=== PATIENT | female | born 1985 | race Caucasian/White ===

== ENCOUNTER 2016-12-14 08:39 | Emergency (ER) | payer OTHER ==
[~2016-12-14] VITALS: Ht 152.4 cm; Wt 88.0 kg
[~2016-12-14 08:39] MED LIST: BUSP10TA PO; DEPO150I IM; DICY20TA10 PO; NORE1TAB57 PO; SERT-132 PO
[2016-12-14 08:53] VITALS: BP 118/86; PULSE 84; RESP 16; TEMP 98.4; O2SAT 98
[2016-12-14] MEDS ORDERED: OMEP40CA2 PO (09:04)
[2016-12-14] MEDS ORDERED: SODIUM CHLOR 0.9% 1000 ML INJ 1,000 ML IV SCH (09:05)
--- NOTE | 2016-12-14 09:08 | PD ---
HPI Chief Complaint: Abdominal Pain Time Seen by Provider: 08:56 Travel History International Travel<30 days: No Contact w/Intl Traveler<30days: No Traveled to known affect area: No History of Present Illness HPI This is a 31-year-old female who had onset of abdominal discomfort that started last night, constant, moderate severity associated with increased severity this morning with 2 episodes of vomiting. She denies any fevers or chills. She does have some radiation of the pain to the right flank. She says she's been trying to have a bowel movement but she feels like she can't. She denies any diarrhea. She denies any urinary frequency or urgency. She denies any vaginal discharge and she's had one sexual partner in the past 7 years. PFSH Past Medical History Hx Anticoagulant Therapy: No Arthritis: No Asthma: No Autoimmune Disease: No Blood Disorders: No Anxiety: Yes Depression: Yes Heart Rhythm Problems: No Cancer: No Cardiovascular Problems: No High Cholesterol: No Chemotherapy: No Chest Pain: No Congestive Heart Failure: No COPD: No Cerebrovascular Accident: No Diabetes: No Diminished Hearing: No Fibromyalgia: Yes Gastrointestinal Disorders: No GERD: Yes Glaucoma: No Genitourinary: No Headaches: No Hepatitis: No Hiatal Hernia: No Hypertension: No Kidney Stones: No Musculoskeletal: No Neurologic: No Psychiatric: No Reproductive: No Respiratory: No Migraines: No Myocardial Infarction: No Radiation Therapy: No Renal Failure: No Seizures: No Sickle Cell Disease: No Sleep Apnea: No Thyroid Disease: No Ulcer: Yes Tetanus Vaccination: > 5 Years Influenza Vaccination: No ?: Not : 0 Past Surgical History Abdominal Surgery: No AICD: No Appendectomy: No Arteriovenous Shunt: No Cardiac Surgery: No Cholecystectomy: No Ear Surgery: No Endocrine Surgery: No Eye Surgery: No Genitourinary Surgery: No Gynecologic Surgery: No Insulin Pump: No Joint Replacement: No Neurologic Surgery: No Oral Surgery: Yes (TONSILECTOMY) Pacemaker: No Thoracic Surgery: No Tonsillectomy: Yes (12/28/07) Other Surgery: Yes (TONSILECTOMY) Social History Alcohol Use: No Tobacco Use: No Substance Use: No Allergies-Medications (Allergen,Severity, Reaction): Coded Allergies: Procardia (Verified Allergy, Unknown, 12/14/16) Reported Meds & Prescriptions Reported Meds & Active Scripts Active Sertraline (Sertraline HCl) 50 Mg Tab 50 Mg PO DAILY Buspirone (Buspirone HCl) 10 Mg Tab 10 Mg PO BID Reported Depo-Provera Inj (Medroxyprogesterone Inj) 150 Mg/Ml Inj 150 Mg IM Q90D Omeprazole 40 Mg Cap 40 Mg PO DAILY Review of Systems Except as stated in HPI: all other systems reviewed are Neg Physical Exam Narrative GENERAL:Well appearing, no acute distress SKIN: Focused skin assessment warm and dry. HEAD: Atraumatic. Normocephalic. EYES: Pupils equal and round. No injection or drainage. ENT: Moist mucous membranes NECK: Trachea midline. CARDIOVASCULAR: Regular rate and rhythm. No murmur appreciated. RESPIRATORY: Clear to auscultation. Breath sounds equal bilaterally. GASTROINTESTINAL: Abdomen soft, tender to palpation with guarding in the right lower quadrant MUSCULOSKELETAL: No obvious deformities. NEUROLOGICAL: Awake and alert. No obvious cranial nerve deficits. Moving all extremities. PSYCHIATRIC: Appropriate mood and affect; insight and judgment normal. Data Data Last Documented VS Vital Signs Date Time Temp Pulse Resp B/P Pulse Ox O2 Delivery O2 Flow Rate FiO2 12/14/16 09:25 98 Room Air 12/14/16 08:53 98.4 84 16 118/86 Orders Urinalysis - C+S If Indicated (12/14/16 08:53) Ed Urine Pregnancytest Poc (12/14/16 08:53) Complete Blood Count With Diff (12/14/16 09:05) Comprehensive Metabolic Panel (12/14/16 09:05) Lipase (12/14/16 09:05) Ct Abd/Pel W Iv Contrast(Rout) (12/14/16 09:05) Iv Access Insert/Monitor (12/14/16 09:05) Ecg Monitoring (12/14/16 09:05) Oximetry (12/14/16 09:05) Morphine Inj (Morphine Inj) (12/14/16 09:15) Ondansetron Inj (Zofran Inj) (12/14/16 09:15) Sodium Chlor 0.9% 1000 Ml Inj (Ns 1000 M (12/14/16 09:05) Sodium Chloride 0.9% Flush (Ns Flush) (12/14/16 09:15) Iohexol 350 Inj (Omnipaque 350 Inj) (12/14/16 09:42) Labs Laboratory Tests Test 12/14/16 12/14/16 09:00 09:15 Urine Collection Type VOIDED Urine Color YELLOW Urine Turbidity CLEAR Urine pH 5.5 Urine Specific [place] 1.009 Urine Protein NEG mg/dL Urine Glucose (UA) NEG mg/dL Urine Ketones NEG mg/dL Urine Occult Blood NEG Urine Nitrite NEG Urine Bilirubin NEG Urine Leukocyte Esterase NEG Urine WBC 0-2 /hpf Urine Squamous Epithelial 0-5 /hpf Cells Urine Bacteria RARE /hpf Microscopic Urinalysis Comment CULT NOT INDICATED Urine Collection Time 0900 White Blood Count 10.1 TH/MM3 Red Blood Count 4.87 MIL/MM3 Hemoglobin 14.1 GM/DL Hematocrit 42.4 % Mean Corpuscular Volume 87.2 FL Mean Corpuscular Hemoglobin 29.0 PG Mean Corpuscular Hemoglobin 33.2 % Concent Red Cell Distribution Width 13.0 % Platelet Count 270 TH/MM3 Mean Platelet Volume 8.0 FL Neutrophils (%) (Auto) 62.1 % Lymphocytes (%) (Auto) 24.6 % Monocytes (%) (Auto) 7.3 % Eosinophils (%) (Auto) 5.3 % Basophils (%) (Auto) 0.7 % Neutrophils # (Auto) 6.3 TH/MM3 Lymphocytes # (Auto) 2.5 TH/MM3 Monocytes # (Auto) 0.7 TH/MM3 Eosinophils # (Auto) 0.5 TH/MM3 Basophils # (Auto) 0.1 TH/MM3 CBC Comment DIFF FINAL Differential Comment Sodium Level 139 MEQ/L Potassium Level 3.8 MEQ/L Chloride Level 105 MEQ/L Carbon Dioxide Level 23.9 MEQ/L Anion Gap 10 MEQ/L Blood Urea Nitrogen 13 MG/DL Creatinine 0.75 MG/DL Estimat Glomerular Filtration 91 ML/MIN Rate Random Glucose 99 MG/DL Calcium Level 8.8 MG/DL Total Bilirubin 0.6 MG/DL Aspartate Amino Transf 22 U/L (AST/SGOT) Alanine Aminotransferase 36 U/L (ALT/SGPT) Alkaline Phosphatase 78 U/L Total Protein 7.6 GM/DL Albumin 3.8 GM/DL Lipase 134 U/L [facility] Medical Decision Making Medical Screen Exam Complete: Yes Emergency Medical Condition: Yes Interpretation(s) Afebrile, no tachycardia, normotensive No leukocytosis Electrolytes are reassuring Lipase is normal Urinalysis: Negative for infection Differential Diagnosis Appendicitis, urinary tract infection, kidney stone, cholelithiasis, cholecystitis Narrative Course This is a 31-year-old female who presents to the emergency department with abdominal pain and vomiting. She was placed on a monitor and an IV was established. Labs are obtained which were reassuring. Urinalysis is negative for infection. I discussed with her doing a pelvic exam by given she's been monogamous with her for 7 years and has no vaginal complaints, she agreed to defer this is pelvic inflammatory disease is unlikely. CT abdomen and pelvis was obtained to evaluate for appendicitis which was negative. The patient does have a history of endometriosis and irritable bowel syndrome. She was unusually tearful when I examined her abdomen, and I suspect that there are some undertones of anxiety and depression contributing to her presentation here in the emergency Department. I don't think she has a surgical emergency and I think she can safely be discharged home to follow up with her primary care physician. Diagnosis Primary Impression: Abdominal pain Qualified Code: R10.30 - Lower abdominal pain Patient Instructions: General Instructions Additional Instructions: If you develop severe or worsening abdominal pain, fever>100.4, persistent vomiting or inability to eat or drink return to the emergency department immediately. Follow up with your primary care physician in 1-2 days for a check-up. Med/Other Pt SpecificInfo: Prescription(s) given Scripts Ondansetron Odt (Zofran Odt)4 Mg Tab4 Mg SL Q6HR PRN (Nausea/Vomiting) #15 TAB Prov:Brandy Elliott MD 12/14/16 Naproxen 500 Mg [id number] Mg PO BID PRN (PAIN SCALE 4 TO 10) #20 TAB Prov:Brandy Elliott MD 12/14/16 Disposition: 01 DISCHARGE HOME Condition: Stable Brandy Elliott MD December 14, 2016 09:08
[2016-12-14] MEDS ORDERED: DEPO150I IM (09:09)
[2016-12-14] MEDS ORDERED: MORPHINE SULFATE 4 MG/ML INJ IV PUSH ONE (09:15)
[2016-12-14] MEDS ORDERED: ONDANSETRON HCL 4 MG/2 ML VIAL IVP ONE (09:15)
[2016-12-14] MEDS ORDERED: SODIUM CHLORIDE 0.9% FLUSH 10 ML FLUSH IV FLUSH PRN (09:15)
[2016-12-14 09:17] LABS: BLOOD, URINE NEG (NEG); GLUCOSE,URINE NEG (NEG); KETONE, URINE NEG (NEG); NITRITE,URINE NEG (NEG); PH, URINE 5.5 (5.0-8.5)
[2016-12-14 09:25] VITALS: O2SAT 98
[2016-12-14 09:28] LABS: AUTOMATED NEUTROPHIL # 6.3 TH/MM3 (1.8-7.7); BASOPHIL # 0.1 TH/MM3 (0-0.2); BASOPHIL % 0.7 % (0.0-2.0); EOSINOPHIL # 0.5 TH/MM3 (0-0.4); EOSINOPHIL % 5.3 % (0.0-4.0); HEMATOCRIT 42.4 % (35.0-46.0); LYMPH % 24.6 % (9.0-44.0); LYMPHOCYTE # 2.5 TH/MM3 (1.0-4.8); MEAN CELL VOLUME 87.2 FL (80.0-100.0); MEAN CORPUSCULAR HGB CONC 33.2 % (32.0-36.0); MONO % 7.3 % (0.0-8.0); NEUT % 62.1 % (16.0-70.0); PLATELET COUNT 270 TH/MM3 (150-450); RED BLOOD COUNT 4.87 MIL/MM3 (4.00-5.30); WHITE BLOOD COUNT 10.1 TH/MM3 (4.0-11.0)
[2016-12-14 09:41] LABS: METHOD OF COLLECTION VOIDED; SQUAMOUS EPITHELIAL CELL URINE 0-5 /hpf (0-5); URINE COLOR YELLOW (YELLW/STRAW); WBC, URINE 0-2 /hpf (0-5)
[2016-12-14 09:42] LABS: BACTERIA, URINE RARE /hpf
[2016-12-14] MEDS ORDERED: IOHEXOL 350 MG/ML 10 ML VIAL (for RAD DIAG) IV ONE (09:42)
[2016-12-14 09:43] LABS: COMMENT (UR) CULT NOT INDICATED; CULTURE IF INDICATED CULT NOT INDICATED
[2016-12-14 09:44] LABS: HEMO FLAGS DIFF FINAL
[2016-12-14 09:49] LABS: BICARBONATE 23.9 MEQ/L (21.0-32.0)
[2016-12-14 09:52] LABS: AST (GOT) 22 U/L (15-37); GLOMERULAR FILTRATION RATE 91 ML/MIN (>89)
[2016-12-14 09:54] LABS: ANION GAP 10 MEQ/L (5-15); CHLORIDE 105 MEQ/L (98-107); POTASSIUM 3.8 MEQ/L (3.5-5.1); SODIUM (NA) 139 MEQ/L (136-145)
--- NOTE | 2016-12-14 09:54 | RADHPO ---
EXAM DATE/TIME: 12/14/2016 09:24 [facility] COMPARISON: No previous studies available for comparison. INDICATIONS : Abdominal discomfort last night radiating to right flank area. Evaluate for appendicitis. IV CONTRAST: 95 cc Omnipaque 350 (iohexol) IV ORAL CONTRAST: No oral contrast ingested. RADIATION DOSE: 19.80 CTDIvol (mGy) MEDICAL HISTORY : Gastroesophageal reflux disease. Ulcer. Endometriosis. SURGICAL HISTORY : Tubal ligation. ENCOUNTER: Initial ACUITY: 1 day PAIN SCALE: 9/10 LOCATION: Right flank TECHNIQUE: Volumetric scanning of the abdomen and pelvis was performed. Using automated exposure control and ad justment of the mA and/or kV according to patient size, radiation dose was kept as low as reasonably achievable to obtain optimal diagnostic quality images. FINDINGS: LOWER LUNGS: The visualized lower lungs are clear. LIVER: Homogeneous density without lesion. The liver measures 20.1 cm in length. There is no dilation of th e biliary tree. No calcified gallstones. SPLEEN: Normal size without lesion. PANCREAS: Within normal limits. KIDNEYS: Normal in size and shape. There is no mass, stone or hydronephrosis. ADRENAL GLANDS: Within normal limits. VASCULAR: There is no aortic aneurysm. BOWEL/MESENTERY: The stomach, small bowel, and colon demonstrate no acute abnormality. There is no free intraperitone al air or fluid. Appendix and terminal ileum have a normal appearance. ABDOMINAL WALL: Within normal limits. RETROPERITONEUM: There is no lymphadenopathy. BLADDER: No wall thickening or mass. REPRODUCTIVE: Within normal limits. INGUINAL: There is no lymphadenopathy or hernia. MUSCULOSKELETAL: No acute finding. CONCLUSION: No acute finding is identified within the abdomen or pelvis. The appendix and terminal ileum have a n ormal appearance. Germán Guadalupe MD on December 14, 2016 at 9:48 Board Certified Radiologist. This report was verified electronically.
[2016-12-14 09:55] LABS: ALKALINE PHOSPHATASE 78 U/L (45-117)
[2016-12-14 09:58] LABS: ALT (GPT) 36 U/L (10-53)
[2016-12-14 10:01] LABS: BLOOD UREA NITROGEN 13 MG/DL (7-18)
[2016-12-14 10:10] LABS: TOTAL BILIRUBIN ADULT 0.6 MG/DL (0.2-1.0)
[2016-12-14] MEDS ORDERED: ZOFR4TAB3 SL (10:26)
[2016-12-14] MEDS ORDERED: NAPR500T PO (10:26)
[2016-12-14 10:32] VITALS: BP 104/61; PULSE 87; RESP 14; O2SAT 100
[2017-01-03] MEDS ORDERED: ZOFR4TAB3 SL (13:39)
[2017-01-03] MEDS ORDERED: NITR1CAP36 PO (13:48)
== END 2016-12-14 10:44 | disposition home or self-care (01) ==
LOC: PHED 08:39
DX: R10.30 Lower abdominal pain, unspecified (principal); R11.10 Vomiting, unspecified; K58.9 Irritable bowel syndrome, unspecified; F41.9 Anxiety disorder, unspecified; F32.9 Major depressive disorder, single episode, unspecified; M79.7 Fibromyalgia; K21.9 Gastro-esophageal reflux disease without esophagitis; Z79.899 Other long term (current) drug therapy
CPT/HCPCS: 74177; 80053; 81001; 83690; 84703; 85025; 96361; 96374; 96375; 99285; J2270; J2405; J7030; Q9967

== ENCOUNTER 2017-03-19 09:22 | Emergency (ER) | payer OTHER ==
[~2017-03-19] VITALS: Ht 152.4 cm; Wt 90.1 kg
[~2017-03-19 09:22] MED LIST changes: -DICY20TA10 PO; +NAPR500T PO; +NITR1CAP36 PO; -NORE1TAB57 PO; +OMEP40CA2 PO; +ZOFR4TAB3 SL
[2017-03-19 09:26] VITALS: BP 135/82; PULSE 110; RESP 16; TEMP 98.5; O2SAT 97
[2017-03-19] MEDS ORDERED: BUSP10TA PO (09:33)
--- NOTE | 2017-03-19 09:36 | PD ---
HPI Chief Complaint: Injury Time Seen by Provider: 09:30 Travel History International Travel<30 days: No Contact w/Intl Traveler<30days: No Traveled to known affect area: No History of Present Illness HPI 31-year-old female states she tripped and fell last night at a [employer] party. She did not hit her head or black out. She is having pain to her left arm from her upper arm down. She states the pain is sharp. Severity severe. Pain is worse movement. She denies other specific modifying factors. She denies specific other concurrent complaints. PFSH Past Medical History Hx Anticoagulant Therapy: No Arthritis: No Asthma: No Autoimmune Disease: No Blood Disorders: No Anxiety: Yes Depression: Yes Heart Rhythm Problems: No Cancer: No Cardiovascular Problems: No High Cholesterol: No Chemotherapy: No Chest Pain: No Congestive Heart Failure: No COPD: No Cerebrovascular Accident: No Diabetes: No Diminished Hearing: No Gastrointestinal Disorders: No GERD: Yes Glaucoma: No Genitourinary: No Headaches: No Hepatitis: No Hiatal Hernia: No Hypertension: No Kidney Stones: No Musculoskeletal: No Neurologic: No Psychiatric: No Reproductive: Yes (ENDOMETRIOSIS) Respiratory: No Migraines: No Myocardial Infarction: No Radiation Therapy: No Renal Failure: No Seizures: No Sickle Cell Disease: No Sleep Apnea: No Thyroid Disease: No Ulcer: Yes ?: Not LMP: DEPO PROVERA; TUBAL LIGATION : 0 Past Surgical History Abdominal Surgery: No AICD: No Appendectomy: No Arteriovenous Shunt: No Cardiac Surgery: No Cholecystectomy: No Ear Surgery: No Endocrine Surgery: No Eye Surgery: No Genitourinary Surgery: No Gynecologic Surgery: No Insulin Pump: No Joint Replacement: No Neurologic Surgery: No Oral Surgery: Yes (TONSILECTOMY) Pacemaker: No Thoracic Surgery: No Tonsillectomy: Yes (12/28/07) Other Surgery: Yes (TONSILECTOMY) Social History Alcohol Use: No Tobacco Use: No Substance Use: No Allergies-Medications (Allergen,Severity, Reaction): Coded Allergies: nifedipine (Unverified Allergy, Unknown, 03/19/17) Reported Meds & Prescriptions Reported Meds & Active Scripts Active Sertraline (Sertraline HCl) 50 Mg Tab 50 Mg PO DAILY Reported Buspirone (Buspirone HCl) 10 Mg Tab 10 Mg PO DAILY Depo-Provera Inj (Medroxyprogesterone Inj) 150 Mg/Ml Inj 150 Mg IM Q90D Omeprazole 40 Mg Cap 40 Mg PO DAILY Review of Systems Except as stated in HPI: all other systems reviewed are Neg Physical Exam Narrative General: 31 y/o patient in no apparent distress Skin: trauma noted to left knee with abrasion, ecchymosis to left hand, swelling to left elbow Eyes: Pupils equal NECK: no pain with range of motion Cardiovascular: Regular rate and rhythm Respiratory: Normal respiratory effort noted Extremities: Pain with palpation of left upper arm, elbow, forearm, hand, no lacerations over, neurovascularly intact, no pain with rom of other joints Neuro: awake, alert, sensation and motor grossly intact Data Data Last Documented VS Vital Signs Date Time Temp Pulse Resp B/P (MAP) Pulse Ox O2 Delivery O2 Flow Rate FiO2 03/19/17 10:00 18 03/19/17 09:26 98.5 110 135/82 (99) 97 Orders Orders Humerus (Min 2vws) (03/19/17 ) Elbow, Complete (4 Vws) (03/19/17 09:33) Forearm (2vws) (03/19/17 09:33) Hand, Complete ([id number]) (03/19/17 09:33) Morphine Inj (Morphine Inj) (03/19/17 09:45) MDM Medical Decision Making Medical Screen Exam Complete: Yes Emergency Medical Condition: Yes Medical Record Reviewed: Yes (past history confirmed) Interpretation(s) Last 24 hours Impressions Radius/Ulna X-Ray 03/19/17932 Signed Impressions: Service Date/Time: Sunday, March 19, 2017 09:54 - CONCLUSION: Normal examination for a patient of this age. Alex Veliz MD Elbow X-Ray 03/19/17932 Signed Impressions: Service Date/Time: Sunday, March 19, 2017 09:55 - CONCLUSION: Normal examination for a patient of this age. Alex Veliz MD humerus and hand prelim no fracture Differential Diagnosis Fracture, strain, sprain Narrative Course Will check left humerus, elbow, forearm, hand x-ray and dose with morphine and reevaluate. Patient took states she doesn't need x-ray of her left knee and denies other complaints xray without fracture, patient without scaphoid tenderness, Patient denies any new complaints and states that they are feeling better. Patient happy with care , all questions answered. Patient knows that follow up is incumbent on them and to return to the emergency room immediately if new or worsening symptoms develop. Patient given strict return precautions, vitals reviewed and are normal , agrees to further workup as an outpatient. Diagnosis Primary Impression: Left arm pain Patient Instructions: General Instructions Additional Instructions: tylenol and motrin as needed, follow with primary this week for recheck, return as needed Med/Other Pt SpecificInfo: No Change to Meds Disposition: 01 DISCHARGE HOME Condition: Stable Holley Barker MD Mar 19, 2017 09:36
[2017-03-19] MEDS ORDERED: MORPHINE SULFATE 4 MG/ML INJ IM ONE (09:45)
[2017-03-19 10:00] VITALS: RESP 18
--- NOTE | 2017-03-19 10:30 | RADRPT ---
EXAM DATE/TIME: 03/19/2017 09:54 [facility] COMPARISON: ELBOW LEFT COMPLETE (4 VWS), March 19, 2017, 9:55. INDICATIONS : Fall last night MEDICAL HISTORY : None. SURGICAL HISTORY : None. ENCOUNTER: Initial ACUITY: 1 day PAIN SCORE: 10/10 LOCATION: Left forearm FINDINGS: Two view examination of the left forearm demonstrates no evidence of fracture or dislocation. Bony m ineralization is normal. The soft tissue structures are intact. CONCLUSION: Normal examination for a patient of this age. Alex Veliz MD on March 19, 2017 at 10:28 Board Certified Radiologist. This report was verified electronically.
--- NOTE | 2017-03-19 10:30 | RADRPT ---
EXAM DATE/TIME: 03/19/2017 09:55 [facility] COMPARISON: No previous studies available for comparison. INDICATIONS : Fall last night MEDICAL HISTORY : None. SURGICAL HISTORY : None. ENCOUNTER: Initial ACUITY: 1 day PAIN SCORE: 10/10 LOCATION: Left elbow FINDINGS: Multiple view examination of the left elbow demonstrates no soft tissue swelling, joint effusion, or fracture. The osseous structures are in normal alignment. Bony mineralization is normal. CONCLUSION: Normal examination for a patient of this age. Alex Veliz MD on March 19, 2017 at 10:28 Board Certified Radiologist. This report was verified electronically.
--- NOTE | 2017-03-19 10:31 | RADRPT ---
EXAM DATE/TIME: 03/19/2017 09:56 [facility] COMPARISON: No previous studies available for comparison. INDICATIONS : Fall last night MEDICAL HISTORY : None. SURGICAL HISTORY : None. ENCOUNTER: Initial ACUITY: 1 day PAIN SCORE: 10/10 LOCATION: Left hand FINDINGS: Three view examination of the left hand demonstrates no soft tissue swelling, dislocation, or fractur e. The carpal bones appear intact. The interphalangeal and metacarpophalangeal joints are intact. Bony mineralization is normal. CONCLUSION: Normal examination for a patient of this age. Alex Veliz MD on March 19, 2017 at 10:29 Board Certified Radiologist. This report was verified electronically.
--- NOTE | 2017-03-19 10:36 | RADRPT ---
EXAM DATE/TIME: 03/19/2017 10:08 [facility] COMPARISON: No previous studies available for comparison. INDICATIONS : Fall last night MEDICAL HISTORY : None. SURGICAL HISTORY : None. ENCOUNTER: Initial ACUITY: 1 day PAIN SCORE: 10/10 LOCATION: Left upper arm FINDINGS: Two view examination of the left humerus demonstrates no evidence of fracture or dislocation. Bony m ineralization is normal. The soft tissue structures are intact. CONCLUSION: Unremarkable study Alex Veliz MD on March 19, 2017 at 10:34 Board Certified Radiologist. This report was verified electronically.
[2017-03-19 11:11] VITALS: BP 117/71
[2017-03-19] MEDS ORDERED: KETOROLAC TROMETHAMINE 60 MG/2 ML (IM) VIAL IM ONE (11:15)
[2017-03-25] MEDS ORDERED: NAPR500T PO (09:15)
[2017-03-25] MEDS ORDERED: PERC5TAB12 PO (09:15)
[2017-03-25] MEDS ORDERED: PRED20 PO (09:15)
[2017-03-25] MEDS ORDERED: [UNRECOGNIZED DRUG - SUPPLY] (09:17)
[2017-04-25] MEDS ORDERED: IBUP-232 PO (13:36)
== END 2017-03-19 11:15 | disposition home or self-care (01) ==
LOC: PHED 09:22
DX: M79.602 Pain in left arm (principal)
CPT/HCPCS: 73060; 73080; 73090; 73130; 96372; 99284; J1885; J2270

== ENCOUNTER → 2017-08-10 | Day surgery (SDC) | payer OTHER ==
[~2017-08-10] VITALS: Ht 165.1 cm; Wt 84.0 kg
[~2017-08-10] MED LIST changes: +ACETAMINOPHEN 1000 MG/100 ML 100 ML IV ONE; +ACETAMINOPHEN/HYDROcodone 325 MG/5 MG TAB ONE; +BUPIVACAINE HCL PF 0.5% 30 ML VIAL ONE; +CEPH-460 PO; +CHLORHEXIDINE GLUCONATE 2 % 1 PACK (2 CLOTHS) TOPICAL PRN; +FAMOTIDINE 20 MG/2 ML VIAL ONE; +HYDR-3288 PO; +HYDROmorphone HCL PF 1 MG/ML VIAL ONE; +IBUP-232 PO; +LACTATED RINGER'S 1000 ML IV PRN; +LIDOCAINE HCL 2% 50 ML VIAL ONE; +METOPROLOL TARTRATE 25 MG TAB PO PRN; +MIDAZOLAM HCL 2 MG/2 ML VIAL ONE; +MORPHINE SULFATE 4 MG/ML INJ ONE; -NAPR500T PO; +NEOMYCIN/POLYMYXIN 1 ML G.U. IRRIGANT ONE; -NITR1CAP36 PO; +POVIDONE IODINE 5% (ANTISEPSIS KIT) 4 APPLICATIONS EACH NARE PRN; +RESP: ALBUTEROL CONC 2.5 MG/0.5 ML NEB ONE; +SODIUM CHLORID 0.9% 500 ML IV PRN; +TRIAMCINOLONE ACETONIDE 40 MG/ML VIAL ONE; -ZOFR4TAB3 SL
[2017-08-10 07:15] LABS: HEMOGLOBIN 13.8 GM/DL (11.6-15.3); MEAN CELL VOLUME 88.5 FL (80.0-100.0); MEAN CORPUSCULAR HEMOGLOBIN 29.1 PG (27.0-34.0); MEAN CORPUSCULAR HGB CONC 32.9 % (32.0-36.0); MEAN PLATELET VOLUME 8.1 FL (7.0-11.0); PLATELET COUNT 280 TH/MM3 (150-450); RED BLOOD COUNT 4.75 MIL/MM3 (4.00-5.30); RED CELL DISTRIBUTION WIDTH 12.6 % (11.6-17.2); WHITE BLOOD COUNT 10.4 TH/MM3 (4.0-11.0)
[2017-08-10] MEDS: ceFAZolin 2 GM PREMIX 50 ML IV SCH ×2 (08:05→08:19)
--- NOTE | 2017-08-10 12:29 | MP ---
cc: YAN ARDON III, M.D. DATE OF OPERATION 08/10/2017 PREOPERATIVE DIAGNOSES 1. Left carpal tunnel syndrome. 2. Left ulnar neuropathy. PROCEDURE 1. Left ulnar nerve release at the elbow with submuscular transposition. 2. Left ulnar nerve released at the wrist. 3. Left open carpal tunnel release. SURGEON Yan Ardon MD PROCEDURE The patient was brought to the operating room, placed upon the operating room table. After the correct site and side of surgery were verified with members of each team room multiple times including the patient and myself, after preoperative markings, preoperative written consent was verified by everyone, after adequate preoperative time-out was performed to everyone's satisfaction and general anesthesia was achieved, the left upper extremity prepped and draped in the traditional sterile surgical fashion. A 50/50 mixture of 2% plain lidocaine and 0.5% plain Marcaine was infiltrated in the skin and subcutaneous tissue in the area of the planned incisions. The limb was exsanguinated with an [place] wrap and a highly placed, well-padded axillary tourniquet was inflated to 200 mmHg for a total of 69 minutes. A longitudinal incision at the base of palm was made and carried down through the skin and subcutaneous tissue. Blunt dissection was performed. The palmar fascia was retracted in opposite directions. The transverse carpal ligament was identified and transected in its midline from its proximal-most to its distal-most extents, completely releasing the carpal tunnel and all it contents with an angled incision over the ulnar neurovascular bundle 2 cm ulnar to the carpal tunnel. Incision was made, carried down through the skin and subcutaneous tissue. Blunt dissection was performed and bipolar electrocautery was used as needed. The neurovascular bundle there was found to have some constriction in the palm and this was freed all the way to the bifurcation and proximally into the forearms. Thorough irrigation with saline was performed in both incisions and then the skin edges were reapproximated using running 4-0 nylon sutures. Attention was then paid to the left elbow where the elbow was elevated on a bump in 45 degrees angle. Hockey-stick shaped incision 1 cm anterior to the ulnar groove was made and carried down through skin and subcutaneous tissue. Bipolar electrocautery was used. The ulnar nerve was identified in the ulnar groove in the elbow and dissected proximally to the arcade of [place] and distally to the bifurcation in the muscle. There was a very pronounced area of irritation in the ulnar groove where the nerve for a 3 cm length was inflamed and obviously unhappy. A stair-step incision was made in the flexor retinaculum, flexor muscles and a bed in the muscle was made. The intermuscular septum was incised and the ulnar nerve placed anterior to the axis of rotation. Thorough irrigation with saline was performed. The flexor retinaculum was closed over the nerve using 2-0 Vicryl sutures. Passive range of motion examination was performed and the nerve stayed nice and loose, without any evidence of kinking or tenting. The axillary tourniquet was released. Pressure was held on the wrist to prevent hematoma formation. There was no active bleeding within the area of the elbow incision. The subcutaneous fatty tissue was then sutured posteriorly to the nerve at the olecranon to reinforce the new positioning of the nerve. Thorough irrigation was performed again. The deep subcutaneous tissues were closed with 3-0 Vicryl suture and the skin edges reapproximated using running 4-0 nylon sutures. 1/4-inch [place] was split in half longitudinally, placed within the deepest aspect of the wound and brought out distally. Additional local anesthetic was infiltrated for postoperative pain control. Of note, the median epicondyle was injected with a dilute Kenalog and Marcaine mixture, a very small amount in the area of the greatest inflammation as the patient was having significant symptoms of median epicondylitis preoperatively. The hand and arm were thoroughly cleansed and dried. Betadine and Adaptic dressings applied on top of the wounds. The drain was brought out distally in the elbow wound. A very well-padded, well-molded, long-arm posterior elbow immobilizing splint with the elbow in flexion was made in the usual fashion. Of note, the hand and all the fingers on the left became immediately soft, pink and warm and had brisk capillary refill of less than 2 seconds upon release of the tourniquet. MD ALBINO Shahid III/ARA /11:05 AM /12:02 PM
[2017-08-10 12:30] VITALS: BP 116/70; PULSE 87; RESP 15; TEMP 97.6; O2SAT 99
== END | disposition home or self-care (01) ==
LOC: PHSDC 06:09
PROVIDERS: ATTEND Orthopaedic Surgery Hand Surgery
DX: G56.02 Carpal tunnel syndrome, left upper limb (principal); G56.22 Lesion of ulnar nerve, left upper limb
CPT/HCPCS: 01710; 01810; 36415; 64718; 64719; 64721; 85027; 94664; J0131; J0690; J1170; J2250; J2270; J3010; J3301; J7120; J7611

== ENCOUNTER 2018-09-17 11:38 | Inpatient (IN) ==
[2018-09-17] MEDS ORDERED: Morphine Inj 4 MG/ML Vial IV.PUSH ONE ×2 (12:10→14:09)
[2018-09-17] MEDS ORDERED: Ketorolac Inj 30 MG/ML (IVP) Vial IV.PUSH ONE ×2 (12:10→22:03)
[2018-09-17] MEDS ORDERED: Sod Chloride 0.9% Inj 1,000 ML IV.SIG ONE (12:10)
[2018-09-17 12:36] LABS: Bilirubin,Urine Negative (Negative); Clarity,Urine Slightly Cloudy (Clear); Color,Urine Yellow (Yellw/Straw); Glucose,Urine (UA) Negative (Negative); Ictotest,Urine Negative (Negative); Leukocyte Esterase,Urine Small (Negative); Nitrite,Urine Negative (Negative); Specific Gravity,Urine 1.025 (1.002-1.035)
[2018-09-17 12:40] LABS: Bacteria,Urine Few /hpf; Mucus,Urine Many /lpf (Occasional)
[2018-09-17 12:53] LABS: Chloride 106 meq/L (98-107); Potassium 3.4 meq/L (3.5-5.1); Sodium 137 meq/L (136-145)
[2018-09-17 12:57] LABS: Albumin 3.3 g/dL (3.4-5.0); Anion Gap 8 meq/L (5-15); Blood Urea Nitrogen 6 mg/dL (7-18); Calcium 8.7 mg/dL (8.5-10.1); Carbon Dioxide 23.3 meq/L (21.0-32.0); Glucose,Random 120 mg/dL (74-106); Lipase 67 U/L (73-393)
[2018-09-17 12:59] LABS: Activated Partial Thrombo Time 27.9 sec (23.4-31.7)
[2018-09-17 13:00] LABS: Alanine Aminotransferase 74 U/L (10-53); Aspartate Aminotransferase 44 U/L (15-37); Glomerular Filtration Rate Greater Than 89 mL/min (>89)
[2018-09-17 13:02] LABS: Total Protein 6.9 g/dL (6.4-8.2)
[2018-09-17 13:03] LABS: Alkaline Phosphatase 73 U/L (45-117)
[2018-09-17 13:06] LABS: Baso # (Auto) 0.1 th/mm3 (0.0-0.2); Baso % (Auto) 0.4 % (0.0-2.0); Eos # (Auto) 0.4 th/mm3 (0.0-0.4); Eos % (Auto) 2.4 % (0.0-4.0); Hematocrit 39.1 % (35.0-46.0); Hemoglobin 13.7 gm/dL (11.6-15.3); Lymph # (Auto) 1.8 th/mm3 (1.0-4.8); Lymph % (Auto) 12.2 % (9.0-44.0); Mean Corpuscular Hemoglobin 31.6 pg (27.0-34.0); Mean Corpuscular Volume 90.1 fL (80.0-100.0); Mean Platelet Volume 9.2 fL (7.0-11.0); Mono # (Auto) 0.7 th/mm3 (0.0-0.9); Mono % (Auto) 4.8 % (0.0-8.0); Neut # (Auto) 11.8 th/mm3 (1.8-7.7); Neut % (Auto) 80.2 % (16.0-70.0); Platelet Count 266 th/mm3 (150-450); Red Blood Count 4.34 mil/mm3 (4.00-5.30); Red Cell Distribution Width 12.9 % (11.6-17.2); White Blood Count 14.8 th/mm3 (4.0-11.0)
[2018-09-17 13:23] LABS: Path Slide Review S; Platelet Estimate Normal (Normal); Platelet Morphology Normal (Normal)
--- NOTE | 2018-09-17 13:33 | CT ---
EXAM DATE: 09/17/2018 1:11 PM EST AGE/SEX: 33 years / Female INDICATIONS: Right lower abdominal pain radiating posteriorly. CLINICAL DATA: This is the patient's initial encounter. Patient reports that signs and symptoms have been present for 3 days and indicates a pain score of 10/10. MEDICAL/SURGICAL HISTORY: Diverticulosis. Gastroesophageal reflux disease. Ulcers. s ection. Tubal ligation. ORAL CONTRAST: No oral contrast ingested. RADIATION DOSE: 20.01 CTDI (mGy) COMPARISON: [facility], CT ABDOMEN & PELVIS W/O CONTRAST, 03/23/2018. . TECHNIQUE: Multiple contiguous axial images were obtained through the abdomen and pelvis following b olus infusion of 95 ml Omnipaque 350 (iohexol) nonionic water-soluble contrast as a single exam dos e. No oral contrast ingested. Using automated exposure control and adjustment of the mA and/or kV ac cording to patient size, radiation dose was kept as low as reasonably achievable to obtain optimal di agnostic quality images. DICOM format image data is available electronically for review and comparis on. FINDINGS: LOWER LUNGS: The visualized lower lungs are clear. LIVER: Hepatomegaly with mild diffusely decreased hepatic attenuation without volume loss or intrahe patic ductal dilatation. SPLEEN: Homogeneous density without enlargement. PANCREAS: Unremarkable without mass or calcification. KIDNEYS: Kidneys demonstrate symmetrical enhancement and are symmetrical in size without evidence fo r radiopaque renal calculi or hydronephrosis. ADRENAL GLANDS: Unremarkable. AORTA: Indira-aneurysmal. BOWEL/MESENTERY: Appendix is slightly dilated measuring up to 8 mm with mild periappendiceal inflamm atory stranding. No focal drainable fluid collections or free air. Mild sigmoid diverticulosis. Bowel loops are otherwise normal in appearance. ABDOMINAL WALL: Intact. RETROPERITONEUM: No evidence of adenopathy in the retrocrural, para-aortic, or deep pelvic regions. BLADDER: Nearly completely decompressed. REPRODUCTIVE: Fluid is noted in the endometrial canal. BONY STRUCTURES: Unremarkable. CONCLUSION: 1. Findings consistent with acute appendicitis. No evidence for perforation or abscess at this time. 2. Hepatic steatosis. 3. Endometrial prominence which may be related to patient's phase of menstrual cycle. Clinical corre lation is recommended. Electronically signed by: Gal Boston MD Board Certified Radiologist 09/17/2018 1:32 PM EST
[2018-09-17] MEDS ORDERED: Piperacil/Tazo 3.375 GM Premix 3.375 GM/50 ML PIGGYBACK IV.SIG ONE (13:50)
--- NOTE | 2018-09-17 14:06 | ED ---
HPI General Chief complaint: Abdominal Pain Stated complaint: low abd pain/radiating to back/tailbone Time Seen by Provider: 09/17/18 12:02 Source: patient Mode of arrival: ambulatory Limitations: no limitations History of Present Illness HPI narrative: Patient is a 33 year old female who comes in complaining of abdominal pain with nausea. She says the pain started Ritesh around her umbilicus and has migrated to her RLQ now. She has had nausea and felt like she would vomit, but has not vomited. She denies fever or chills. She says the pain wraps around her back. She has not taken anything for pain. She denies any urinary symptoms. Severity is moderate. Related Data Home Medications Medication Instructions Recorded Confirmed omeprazole 20 mg PO BID 03/23/18 09/17/18 Sprintec (28) 1 tab PO DAILY 09/17/18 09/17/18 buspirone 10 mg PO DAILY 09/17/18 09/17/18 duloxetine 20 mg PO BID 09/17/18 09/17/18 phentermine 37.5 mg PO DAILY 09/17/18 09/17/18 Allergies Allergy/AdvReac Type Severity Reaction Status Date / Time nifedipine Allergy Unknown WAS TOLD Verified 09/17/18 11:54 AT HOSPITAL SHE HAD NEGATIVE REACTION Review of Systems ROS: all other systems reviewed are negative Constitutional Denies chills and Denies fever(s) ENT Denies dizziness Cardiovascular Denies chest pain and Denies dyspnea Respiratory Denies cough and Denies dyspnea Gastrointestinal Reports abdominal pain and Reports nausea Musculoskeletal Denies myalgias and Denies arthralgias Integumentary/Breasts Denies sores and Denies wounds Neurologic Denies focal weakness and Denies numbness PMFSH Medical History Medical History Anxiety (Acute) Diverticulosis (Acute) Fatty liver (Acute) GERD (gastroesophageal reflux disease) (Acute) Peptic ulcer (Acute) Ulnar nerve injury (Acute) Surgical History Surgical History H/O laparoscopy (Acute) H/O tubal ligation (Acute) History of tonsillectomy (Acute) Previous section (Acute) Social History Social History Substance History: No History of Abuse Second Hand Smoke Exposure: No Smoking Status: Never smoker How Often Do You Have a Drink Containing Alcohol: Monthly or less Recent Travel in [facility] within the Last 8 Weeks: No Recent Out of Country Travel within the Last 8 Weeks: No Immunization History Tetanus Immunization: Unsure Exam Narrative Exam Narrative: GENERAL: Awake and alert, in no acute distress. SKIN: Focused skin assessment warm/dry. HEAD: Atraumatic. Normocephalic. EYES: Pupils equal and round. No scleral icterus. No injection or drainage. ENT: No nasal bleeding or discharge. Mucous membranes pink and moist. NECK: Trachea midline. No JVD. CARDIOVASCULAR: Regular rate and rhythm. No murmur appreciated. RESPIRATORY: No accessory muscle use. Clear to auscultation. Breath sounds equal bilaterally. GASTROINTESTINAL: Abdomen soft, nondistended. Tender to palpation of the right side of the abdomen. No rebound or guarding. MUSCULOSKELETAL: No obvious deformities. No clubbing. No cyanosis. No edema. NEUROLOGICAL: Awake and alert. No obvious cranial nerve deficits. Motor grossly within normal limits. Normal speech. PSYCHIATRIC: Appropriate mood and affect; insight and judgment normal. Course Initial Documented Vital Signs Temperature 98.2 F 09/17/18 11:51 Pulse Rate 106 H 09/17/18 11:51 Respiratory Rate 18 09/17/18 11:51 Blood Pressure 139/85 09/17/18 11:51 Pulse Oximetry 100 09/17/18 11:51 Last Documented Vital Signs Temperature 98.2 F 09/17/18 11:51 Pulse Rate 106 H 09/17/18 11:51 Respiratory Rate 18 09/17/18 11:51 Blood Pressure 139/85 09/17/18 11:51 Pulse Oximetry 100 09/17/18 11:51 Medical Decision Making [facility] Narrative Medical decision making narrative: Patient is a 33 year old female who comes in complaining of abdominal pain with nausea. Exam shows tenderness to palpation of the right side of the abdomen. IV established, labs sent. Labs show an elevated WBC count to 14.8. Given IVF, pain medicine. CT abd/pelvis concerning for acute appendicitis. Given a dose of Zosyn. Patient admitted for surgical management. Medical Screen Exam Complete: Yes Emergency Medical Condition: Yes Differential Diagnosis Differential Diagnosis: appendicitis vs UTI vs colitis vs renal stone Medical Records Medical records reviewed: Yes I reviewed the patient's medical records. Lab Data Lab results reviewed: Yes I reviewed the patient's lab results. Result diagrams: 09/17/18 12:30 09/17/18 12:30 POC Results POC Urine Results Negative Lab Results 09/17/18 09/17/18 09/17/18 Range/Units 12:00 12:30 12:30 CBC w Diff Slide review pending WBC 14.8 H (4.0-11.0) th/mm3 RBC 4.34 (4.00-5.30) mil/mm3 Hgb 13.7 (11.6-15.3) gm/dL Hct 39.1 (35.0-46.0) % MCV 90.1 (80.0-100.0) fL MCH 31.6 (27.0-34.0) pg MCHC 35.0 (32.0-36.0) % RDW 12.9 (11.6-17.2) % Plt Count 266 (150-450) th/mm3 MPV 9.2 (7.0-11.0) fL Neut % (Auto) 80.2 H (16.0-70.0) % Lymph % (Auto) 12.2 (9.0-44.0) % [place] % (Auto) 4.8 (0.0-8.0) % Eos % (Auto) 2.4 (0.0-4.0) % Baso % (Auto) 0.4 (0.0-2.0) % Neut # (Auto) 11.8 H (1.8-7.7) th/mm3 Lymph # (Auto) 1.8 (1.0-4.8) th/mm3 [place] # (Auto) 0.7 (0.0-0.9) th/mm3 Eos # (Auto) 0.4 (0.0-0.4) th/mm3 Baso # (Auto) 0.1 (0.0-0.2) th/mm3 WBC Differential . Diff Scan Auto diff confirmed Differential Comment . Platelet Estimate Normal (Normal) Platelet Morphology Normal (Normal) PT 10.0 (9.8-11.6) sec INR 1.0 Ratio APTT 27.9 (23.4-31.7) sec Sodium (136-145) meq/L Potassium (3.5-5.1) meq/L Chloride (98-107) meq/L Carbon Dioxide (21.0-32.0) meq/L Anion Gap (5-15) meq/L BUN (7-18) mg/dL Creatinine (0.50-1.00) mg/dL Estimated GFR (>89) mL/min Random Glucose (74-106) mg/dL Calcium (8.5-10.1) mg/dL Magnesium (1.5-2.5) mg/dL Total Bilirubin (0.2-1.0) mg/dL AST (15-37) U/L ALT (10-53) U/L Alkaline Phosphatase (45-117) U/L Total Protein (6.4-8.2) g/dL Albumin (3.4-5.0) g/dL Lipase (73-393) U/L Urine Color Yellow (Yellw/Straw) Urine Clarity Slightly cloudy (Clear) Urine pH 6.0 (5.0-8.5) Ur Specific [place] 1.025 (1.002-1.035) Urine Protein Trace (Neg-Trace) mg/dL Urine Glucose (UA) Negative (Negative) mg/dL Urine Ketones Trace H (Negative) mg/dL Urine Occult Blood Negative (Negative) Urine Nitrate Negative (Negative) Urine Bilirubin Negative (Negative) Urine Ictotest Negative (Negative) Urine Urobilinogen 2.0 H (Less than 2) mg/dL Ur Leukocyte Esterase Small H (Negative) Urine WBC 6-8 H (0-5) /hpf Ur Squamous Epith Cells 6-8 (0-5) /hpf Urine Bacteria Few H (None) /hpf Urine Mucus Many H (Occasional) /lpf Micro UA Comment Culture not ind Ur Microscopic Review Microscopic reviewed Urine Culture Comments Culture not ind 09/17/18 Range/Units 12:30 CBC w Diff WBC (4.0-11.0) th/mm3 RBC (4.00-5.30) mil/mm3 Hgb (11.6-15.3) gm/dL Hct (35.0-46.0) % MCV (80.0-100.0) fL MCH (27.0-34.0) pg MCHC (32.0-36.0) % RDW (11.6-17.2) % Plt Count (150-450) th/mm3 MPV (7.0-11.0) fL Neut % (Auto) (16.0-70.0) % Lymph % (Auto) (9.0-44.0) % [place] % (Auto) (0.0-8.0) % Eos % (Auto) (0.0-4.0) % Baso % (Auto) (0.0-2.0) % Neut # (Auto) (1.8-7.7) th/mm3 Lymph # (Auto) (1.0-4.8) th/mm3 [place] # (Auto) (0.0-0.9) th/mm3 Eos # (Auto) (0.0-0.4) th/mm3 Baso # (Auto) (0.0-0.2) th/mm3 WBC Differential Diff Scan Differential Comment Platelet Estimate (Normal) Platelet Morphology (Normal) PT (9.8-11.6) sec INR Ratio APTT (23.4-31.7) sec Sodium 137 (136-145) meq/L Potassium 3.4 L (3.5-5.1) meq/L Chloride 106 (98-107) meq/L Carbon Dioxide 23.3 (21.0-32.0) meq/L Anion Gap 8 (5-15) meq/L BUN 6 L (7-18) mg/dL Creatinine 0.69 (0.50-1.00) mg/dL Estimated GFR Greater than 89 (>89) mL/min Random Glucose 120 H (74-106) mg/dL Calcium 8.7 (8.5-10.1) mg/dL Magnesium 2.0 (1.5-2.5) mg/dL Total Bilirubin 0.6 (0.2-1.0) mg/dL AST 44 H (15-37) U/L ALT 74 H (10-53) U/L Alkaline Phosphatase 73 (45-117) U/L Total Protein 6.9 (6.4-8.2) g/dL Albumin 3.3 L (3.4-5.0) g/dL Lipase 67 L (73-393) U/L Urine Color (Yellw/Straw) Urine Clarity (Clear) Urine pH (5.0-8.5) Ur Specific [place] (1.002-1.035) Urine Protein (Neg-Trace) mg/dL Urine Glucose (UA) (Negative) mg/dL Urine Ketones (Negative) mg/dL Urine Occult Blood (Negative) Urine Nitrate (Negative) Urine Bilirubin (Negative) Urine Ictotest (Negative) Urine Urobilinogen (Less than 2) mg/dL Ur Leukocyte Esterase (Negative) Urine WBC (0-5) /hpf Ur Squamous Epith Cells (0-5) /hpf Urine Bacteria (None) /hpf Urine Mucus (Occasional) /lpf Micro UA Comment Ur Microscopic Review Urine Culture Comments Imaging Data Radiologist's impression: Abdomen/Pelvis CT 09/17/18 12:10 CONCLUSION: 1. Findings consistent with acute appendicitis. No evidence for perforation or abscess at this time. 2. Hepatic steatosis. 3. Endometrial prominence which may be related to patient's phase of menstrual cycle. Clinical correlation is recommended. Discharge Plan Discharge Disposition Patient Disposition: ED Admit(ED Internal Use Only) Discharge Condition Condition: Stable Discharge Order Discharge Orders: ED Use Only Admit Order (Routine); Ordered 09/17/18 Ordered By: Elvira Ahn Discharge Details Diagnosis: Appendicitis Physicians Team ED Provider: Elvira Ahn Primary Care Provider: Estephania Griffiths Rxs /Orders / Referrals /Forms Prescriptions: No Action Sprintec (28) 1 tab PO DAILY RF: 0 buspirone 10 mg Tablet 10 mg PO DAILY RF: 0 phentermine 37.5 mg Capsule 37.5 mg PO DAILY RF: 0 duloxetine 20 mg Capsule,Delayed Release(Dr/Ec) 20 mg PO BID RF: 0 omeprazole 20 mg Capsule,Delayed Release(Dr/Ec) 20 mg PO BID RF: 0 Status ED Status: With Doctor
--- NOTE | 2018-09-17 18:43 | P.HPGS ---
History of Present Illness Service: ADMISSION NOTE FOR SURGICAL ATTENDING, DR. KEYANNA BYRD Primary Care Physician: MOSES Noble Chief Complaint: Right lower quadrant pain History of Present Illness: Patient had a 2-day history of periumbilical pain radiating down to the right lower quadrant she came into the emergency room and was found to have clinical suspicious of appendicitis confirmed with radiologic imaging surgery was consulted to admit the patient and manage her acute medical issue The patient never experienced pain like this before - Diagnosis (1) Elevated white blood cell count (2) Right lower quadrant pain (3) Tenderness at McBurney's point (4) Appendicitis Inpatient Certification: I certify that the inpatient services were ordered in accordance with Medicare regulations governing the order. This includes certification that hospital inpatient services are reasonable and necessary and in the case of services not specified as inpatient-only under 42 CFR 419.22(n), that they are appropriately provided as inpatient services in accordance to with the 2-midnight benchmark under 43 CFR 412.3(e) Estimated Total Length of Stay (Days): 2 Plans for Post Hospital Care: Home Review of Systems Constitutional: Reports anorexia Gastrointestinal: Reports abdominal pain PMFSH - History History Provided By: Patient - Medical History Medical History: Medical History (Last Updated 09/17/18 @ 18:40 by Keyanna Byrd MD) Anxiety (Acute) Fatty liver (Acute) Diverticulosis (Acute) GERD (gastroesophageal reflux disease) (Acute) Peptic ulcer (Acute) Ulnar nerve injury (Acute) - Surgical History Surgical History: Surgical History (Last Updated 09/17/18 @ 18:40 by Keyanna Byrd MD) H/O tubal ligation (Acute) H/O laparoscopy (Acute) Previous section (Acute) History of tonsillectomy (Acute) - Social History I have reviewed the patient's Social History: Yes - Tobacco History Second Hand Smoke Exposure: No Tobacco Use In Past 30 Days: No Smoking Status: Never smoker - Alcohol History How Often Do You Have a Drink Containing Alcohol: Monthly or less - Substance Use History Substance History: No History of Abuse - Travel History Recent Travel in the [place] Within the Last 8 Weeks: No Recent Travel Out of the Country Within the Last 8 Weeks: No - Immunization History Tetanus Immunization: Unsure Medications and Allergies Active Medications: Active Medications Sodium Chloride (Ns Flush) 2 ml IV.FLUSH PRN PRN PRN Reason: FLUSH AFTER USING IV ACCESS Allergies Allergy/AdvReac Type Severity Reaction Status Date / Time nifedipine Allergy Unknown WAS TOLD Verified 09/17/18 11:54 AT HOSPITAL SHE HAD NEGATIVE REACTION Home Medications Medication Instructions Recorded Confirmed Type omeprazole 20 mg PO BID 03/23/18 09/17/18 History Sprintec (28) 1 tab PO DAILY 09/17/18 09/17/18 History buspirone 10 mg PO DAILY 09/17/18 09/17/18 History duloxetine 20 mg PO BID 09/17/18 09/17/18 History phentermine 37.5 mg PO DAILY 09/17/18 09/17/18 History Exam Vital signs: Vital Signs 09/17/18 11:51 09/17/18 14:00 Temperature 98.2 F Pulse Rate 106 H 100 H Respiratory Rate 18 20 Blood Pressure 139/85 137/82 Pulse Oximetry 100 98 Intake & Output 09/16/18 09/17/18 09/17/18 18:59 06:59 18:59 Intake Total 1050 / 1050 Balance 1050 / 1050 Weight 88.6 kg Intake: IV 1050 / 1050 Zosyn 3.375 GM Premix 3.375 gm 50 / 50 In 50 ml @ 100 mls/hr IV.SIG ONCE ONE Rx#:[id number] NS Inj 1,000 ML @ Wide Open IV. 1000 / 1000 SIG BOLUS ONE Rx#:[id number] Other: # Voids 1 Narrative: Patient sitting up in bed neck is supple without JVD Alert oriented without focal deficits Chest fairly clear with deep inspiration and expiration no rails Heart regular rate without murmur Abdomen slightly obese soft exquisite tenderness right lower quadrant with mild rebound. Surgical scar below the umbilicus tenderness at McBurney's point Extremities moves all extremities well no clubbing cyanosis or edema surgical scar left elbow from surgery Results - Labs 09/17/18 12:30 09/17/18 12:30 Laboratory Last Values CBC w Diff Slide review pending 09/17/18 12:30 WBC 14.8 th/mm3 (4.0-11.0) H 09/17/18 12:30 RBC 4.34 mil/mm3 (4.00-5.30) 09/17/18 12:30 Hgb 13.7 gm/dL (11.6-15.3) 09/17/18 12:30 Hct 39.1 % (35.0-46.0) 09/17/18 12:30 MCV 90.1 fL (80.0-100.0) 09/17/18 12:30 MCH 31.6 pg (27.0-34.0) 09/17/18 12:30 MCHC 35.0 % (32.0-36.0) 09/17/18 12:30 RDW 12.9 % (11.6-17.2) 09/17/18 12:30 Plt Count 266 th/mm3 (150-450) 09/17/18 12:30 MPV 9.2 fL (7.0-11.0) 09/17/18 12:30 Neut % (Auto) 80.2 % (16.0-70.0) H 09/17/18 12:30 Lymph % (Auto) 12.2 % (9.0-44.0) 09/17/18 12:30 [place] % (Auto) 4.8 % (0.0-8.0) 09/17/18 12:30 Eos % (Auto) 2.4 % (0.0-4.0) 09/17/18 12:30 Baso % (Auto) 0.4 % (0.0-2.0) 09/17/18 12:30 Neut # (Auto) 11.8 th/mm3 (1.8-7.7) H 09/17/18 12:30 Lymph # (Auto) 1.8 th/mm3 (1.0-4.8) 09/17/18 12:30 [place] # (Auto) 0.7 th/mm3 (0.0-0.9) 09/17/18 12:30 Eos # (Auto) 0.4 th/mm3 (0.0-0.4) 09/17/18 12:30 Baso # (Auto) 0.1 th/mm3 (0.0-0.2) 09/17/18 12:30 WBC Differential . 09/17/18 12:30 Diff Scan Auto diff confirmed 09/17/18 12:30 Differential Comment . 09/17/18 12:30 Platelet Estimate Normal (Normal) 09/17/18 12:30 Platelet Morphology Normal (Normal) 09/17/18 12:30 PT 10.0 sec (9.8-11.6) 09/17/18 12:30 INR 1.0 Ratio 09/17/18 12:30 APTT 27.9 sec (23.4-31.7) 09/17/18 12:30 Sodium 137 meq/L (136-145) 09/17/18 12:30 Potassium 3.4 meq/L (3.5-5.1) L 09/17/18 12:30 Chloride 106 meq/L (98-107) 09/17/18 12:30 Carbon Dioxide 23.3 meq/L (21.0-32.0) 09/17/18 12:30 Anion Gap 8 meq/L (5-15) 09/17/18 12:30 BUN 6 mg/dL (7-18) L 09/17/18 12:30 Creatinine 0.69 mg/dL (0.50-1.00) 09/17/18 12:30 Estimated GFR Greater than 89 mL/min (>89) 09/17/18 12:30 Random Glucose 120 mg/dL (74-106) H 09/17/18 12:30 Calcium 8.7 mg/dL (8.5-10.1) 09/17/18 12:30 Magnesium 2.0 mg/dL (1.5-2.5) 09/17/18 12:30 Total Bilirubin 0.6 mg/dL (0.2-1.0) 09/17/18 12:30 AST 44 U/L (15-37) H 09/17/18 12:30 ALT 74 U/L (10-53) H 09/17/18 12:30 Alkaline Phosphatase 73 U/L (45-117) 09/17/18 12:30 Total Protein 6.9 g/dL (6.4-8.2) 09/17/18 12:30 Albumin 3.3 g/dL (3.4-5.0) L 09/17/18 12:30 Lipase 67 U/L (73-393) L 09/17/18 12:30 Urine Color Yellow (Yellw/Straw) 09/17/18 12:00 Urine Clarity Slightly cloudy (Clear) 09/17/18 12:00 Urine pH 6.0 (5.0-8.5) 09/17/18 12:00 Ur Specific [place] 1.025 (1.002-1.035) 09/17/18 12:00 Urine Protein Trace mg/dL (Neg-Trace) 09/17/18 12:00 Urine Glucose (UA) Negative mg/dL (Negative) 09/17/18 12:00 Urine Ketones Trace mg/dL (Negative) H 09/17/18 12:00 Urine Occult Blood Negative (Negative) 09/17/18 12:00 Urine Nitrate Negative (Negative) 09/17/18 12:00 Urine Bilirubin Negative (Negative) 09/17/18 12:00 Urine Ictotest Negative (Negative) 09/17/18 12:00 Urine Urobilinogen 2.0 mg/dL (Less than 2) H 09/17/18 12:00 Ur Leukocyte Esterase Small (Negative) H 09/17/18 12:00 Urine WBC 6-8 /hpf (0-5) H 09/17/18 12:00 Ur Squamous Epith Cells 6-8 /hpf (0-5) 09/17/18 12:00 Urine Bacteria Few /hpf (None) H 09/17/18 12:00 Urine Mucus Many /lpf (Occasional) H 09/17/18 12:00 Micro UA Comment Culture not ind 09/17/18 12:00 Ur Microscopic Review Microscopic reviewed 09/17/18 12:00 Urine Culture Comments Culture not ind 09/17/18 12:00 - Imaging Imaging: ITS Impressions Abdomen/Pelvis CT 09/17/18 12:10 CONCLUSION: 1. Findings consistent with acute appendicitis. No evidence for perforation or abscess at this time. 2. Hepatic steatosis. 3. Endometrial prominence which may be related to patient's phase of menstrual cycle. Clinical correlation is recommended. CT scan - abdomen: report reviewed, image reviewed CT scan - pelvis: report reviewed, image reviewed Caprini VTE Risk Assessment Caprini VTE Risk Assessment: No/Low Risk (score <= 1) VTE Pharmacological Exception Reason: Postop bleeding Caprini Risk Assessment Model: Point Value = 1 Point Value = 2 Point Value = 3 Point Value = 5 Age 41-60 Minor surgery BMI > 25 kg/m2 Swollen legs Varicose veins or History of unexplained or recurrent spontaneous Oral contraceptives or hormone replacement Sepsis (< 1 month) Serious lung disease, including pneumonia (< 1 month) Abnormal pulmonary function Acute myocardial infarction Congestive heart failure (< 1 month) History of inflammatory bowel disease Medical patient at bed rest Age 61-74 Arthroscopic surgery Major open surgery (> 45 min) Laparoscopic surgery (> 45 min) Malignancy Confined to bed (> 72 hours) Immobilizing plaster cast Central venous access Age >= 75 History of VTE Family history of VTE Factor V Leiden Prothrombin [id number] Lupus anticoagulant Anticardiolipin antibodies Elevated serum homocysteine Heparin-induced thrombocytopenia Other congenital or acquired thrombophilia Stroke (< 1 month) Elective arthroplasty Hip, pelvis, or leg fracture Acute spinal cord injury (< 1 month) 2 Prophylaxis Regimen: Total Risk Factor Score Risk Level Prophylaxis Regimen 0-1 Low Early ambulation 2 Moderate Order ONE of the following: *Sequential Compression Device (SCD) *Heparin 5000 units SQ BID 3-4 Higher Order ONE of the following medications: *Heparin 5000 units SQ TID *Enoxaparin/Lovenox 40 mg SQ daily (WT < 150 kg, CrCl > 30 mL/min) *Enoxaparin/Lovenox 30 mg SQ daily (WT < 150 kg, CrCl > 10-29 mL/min) *Enoxaparin/Lovenox 30 mg SQ BID (WT < 150 kg, CrCl > 30 mL/min) AND/OR *Sequential Compression Device (SCD) 5 or more Highest Order ONE of the following medications: *Heparin 5000 units SQ TID (Preferred with Epidurals) *Enoxaparin/Lovenox 40 mg SQ daily (WT < 150 kg, CrCl > 30 mL/min) *Enoxaparin/Lovenox 30 mg SQ daily (WT < 150 kg, CrCl > 10-29 mL/min) *Enoxaparin/Lovenox 30 mg SQ BID (WT < 150 kg, CrCl > 30 mL/min) AND *Sequential Compression Device (SCD) Assessment and Plan - Assessment (1) Elevated white blood cell count Code(s): D72.829 - Elevated white blood cell count, unspecified Status: Acute (2) Right lower quadrant pain Code(s): R10.31 - Right lower quadrant pain Status: Acute (3) Tenderness at McBurney's point Code(s): R19.8 - Other specified symptoms and signs involving the digestive system and abdomen Status: Acute (4) Appendicitis Code(s): K37 - Unspecified appendicitis Status: Acute Qualifiers: Appendicitis type: acute appendicitis Acute appendicitis type: unspecified acute appendicitis type Qualified Code(s): K35.80 - Unspecified acute appendicitis - Plan 33-year-old female with classic signs and symptomatology consistent with appendicitis. She has radiologic confirmation of the clinical diagnosis of appendicitis I have called the OR to make arrangements for laparoscopic active but appendectomy as soon as possible. Discussed with the patient about laparoscopic appendectomy possible open - Attending Attestation HISTORY AND PHYSICAL NOTE FOR SURGICAL ATTENDING, DR. KEYANNA BYRD I attest that I had a [id number] encounter with the patient on the same day, and personally performed and documented my assessment and findings in the medical record. The following services were provided during this hospital visit: Chart data review, vital sign assessments/reviewing monitor data Review of consultations notes if present. Medication orders/review and/or management Ordering and/or reviewing lab tests Ordering and/or interpreting/reviewing x-rays and/or diagnostic studies Care of the patient and discussion of the patient with the care team Documentation time To help prompt me to consider important information that might be impacting today's encounter and assessment, Information from prior notes written by myself or my colleagues may have been "brought forward/copy and pasted" into today's note. H&P: Quality - VTE Contraindication No VTE Prophylaxis: Medical contraindication
[2018-09-17] MEDS ORDERED: HYDROmorphone PF Inj 0.5 MG/0.5 ML Syringe IV.PUSH PRN (19:15)
[2018-09-17] MEDS ORDERED: Chlorhexidine Gluconate 2% 1 Pack (2 Cloths) TOPICAL ONE (21:43)
[2018-09-17] MEDS ORDERED: Metoprolol Tartrate 25 MG Tablet PO ONE (21:43)
[2018-09-17] MEDS ORDERED: Bupivacaine/Epinephrine PF Inj 0.5% 30 ML Vial ONE (21:53)
[2018-09-17] MEDS ORDERED: Sodium Chlor 0.9% Inj 500 ML IV.SIG SCH (22:00)
[2018-09-17] MEDS ORDERED: Glycopyrrolate Inj 1 MG/5 ML Syringe IV.PUSH ONE (22:03)
[2018-09-17] MEDS ORDERED: Neostigmine Inj 5 MG/5 ML Syringe IV.PUSH ONE (22:03)
[2018-09-17] MEDS ORDERED: Lidocaine PF 1% Inj 5 ML Syringe OTHER ONE (22:03)
[2018-09-17] MEDS ORDERED: fentaNYL Citrate Inj 100 MCG/2 ML Ampul ONE (23:11)
[2018-09-18] MEDS ORDERED: Levofloxacin 500 mg Premix Inj 500 MG/100 ML PIGGYBACK IV.SIG SCH
--- NOTE | 2018-09-18 00:08 | MP ---
cc: Bao Byrd MD, Joseph D MD DATE OF OPERATION: 09/17/2018 PREOPERATIVE DIAGNOSIS: Acute appendicitis. POSTOPERATIVE DIAGNOSES: Appendicitis with endometriosis. PROCEDURE PERFORMED: 1. Laparoscopic appendectomy. 2. Laparoscopic washout of abdomen and pelvis. ANESTHESIA: General. SURGEON: Bao Byrd MD INDICATIONS: This is a pleasant 33-year-old female who has findings consistent with appendicitis seen on CT imaging. Plans were made for above. PROCEDURE IN DETAIL: The patient was taken to the operating room and placed in the supine position. After anesthesia, her abdomen was prepped with Betadine. Timeout is done. She had been given preoperative antibiotics. After prepping and draping, we make an incision just above the umbilicus. Veress needle was inserted. A saline load test performed. The abdomen was insufflated to 15 mmHg. Two other working ports were placed in the midline, one above the pubic tubercle, from a previous Pfannenstiel incision scar. A third working port placed in the midline. The appendix can be seen. It is obviously inflamed. She has purulent material down in the pelvis. She has some mild endometriosis on the sidewall, on the right side of the pelvis mostly. Looks like she has a ruptured right ovarian cyst with a small amount of blood. Gallbladder smooth. Peritoneal surface otherwise smooth. The liver looks normal. We then grasped the appendix and elevated it so we can take the appendiceal artery down with the Harmonic scalpel. The mesentery with the Harmonic scalpel was taken down. We get to the base of the appendix, placed 2 Endo-ties around the base of the appendix and the appendix was amputated, placed in the EndoCatch, pulled out through the umbilical incision, and passed off the field. We then rechecked our dissection site. We irrigated with about 500 mL of saline down in the pelvis until this was clear. We evacuate the irrigating fluid over the liver. No other gross abnormality seen. We then removed all 3 trocars. The umbilical port was closed with 0 Vicryl at the fascial layer. Skin was closed with a 4-0 Vicryl. Steri-Strips were applied. Sterile bandage was applied. The patient tolerated the procedure well and had no immediate postop complications. Bao Byrd MD JDB/rw , 11:15 PM , 11:23 PM
[2018-09-18 09:03] VITALS: BP 121/68; PULSE 80; RESP 16; TEMP 97.9; O2SAT 96
--- NOTE | 2018-09-19 14:51 | P.DS ---
<Amber Son - Last Filed: 09/19/18 14:49> Date of admission: 09/17/18 14:49 Primary care physician: MOSES Noble Attending physician on discharge: Bao Byrd Anticipated date of discharge: 09/18/18 Brief History from admission: Patient had a 2-day history of periumbilical pain radiating down to the right lower quadrant she came into the emergency room and was found to have clinical suspicious of appendicitis confirmed with radiologic imaging surgery was consulted to admit the patient and manage her acute medical issue The patient never experienced pain like this before DS: Medications - Discharge Medications Prescriptions: hydrocodone-acetaminophen 1 tab PO Q6H PRN #20 tab PRN Reason: Pain 1-10 And/Or Fever >101f hydrocodone-acetaminophen [[place]] 1 tab PO Q4-6H PRN 7 Days #20 tab PRN Reason: Acute Pain Exception DS: Summary Hospital Course: This is a 33 year old female POD1 laparoscopic appendectomy. The patient's pain was controlled using oral pain medications. She was able to tolerate a regular diet. She will follow up in the office. - Time Spent with Patient Total time spent providing and/or coordinating discharge services: Less than 30 minutes - Quality: VTE Contraindication No VTE Prophylaxis: Medical contraindication Deep Vein Thrombosis/Pulmonary Embolism Present on Admission: No Exam Narrative: Alert and awake Abd: soft; minimally tender; lap sites c/d/i Results Procedures completed during hospitalization: laparoscopic appendectomy Pending studies at discharge: Pending at discharge 09/18/18 08:16 Surgical [PTH] Routine - Impressions ITS Impressions Abdomen/Pelvis CT 09/17/18 12:10 CONCLUSION: 1. Findings consistent with acute appendicitis. No evidence for perforation or abscess at this time. 2. Hepatic steatosis. 3. Endometrial prominence which may be related to patient's phase of menstrual cycle. Clinical correlation is recommended. <RochelleBao roach - Last Filed: 09/20/18 16:16> Date of admission: 09/17/18 14:49 Primary care physician: MOSES Noble DS: Diagnosis - Discharge Diagnosis (1) Elevated white blood cell count Status: Acute (2) Right lower quadrant pain Status: Acute (3) Tenderness at McBurney's point Status: Acute (4) Appendicitis Status: Acute DS: Summary - Time Spent with Patient Total time spent providing and/or coordinating discharge services: Results Pending studies at discharge: Pending at discharge 09/18/18 08:16 Surgical [PTH] Routine - Impressions ITS Impressions Abdomen/Pelvis CT 09/17/18 12:10 CONCLUSION: 1. Findings consistent with acute appendicitis. No evidence for perforation or abscess at this time. 2. Hepatic steatosis. 3. Endometrial prominence which may be related to patient's phase of menstrual cycle. Clinical correlation is recommended. Discharge Plan - Discharge Order Discharge Orders: Discharge Order (Routine); Ordered 09/18/18 Ordered By: Amber Son - Discharge Details Anticipated Discharge Date: 09/18/18 - Physicians Team Primary Care Provider: Estephania Griffiths Attending Provider: Bao Byrd Other Providers: Bao Byrd MD ; Surgeons,[facility]
== END 2018-09-18 11:15 | disposition home or self-care (01) | DRG 343 ==
LOC: PHED 11:38 → PHEDH 14:49 → N06 16:49
PROVIDERS: ADMIT Surgery; ATTEND Surgery
PROC: LAPAPPY (ICD-10-PCS; 2018-09-17 22:03)
CPT/HCPCS: 74177; 80053; 81001; 83690; 83735; 84703; 85025; 85610; 85730; 88304; 88341; 88342; 88343; 90761; 90774; 90775; 94150; 96361; 96374; 96375; 99285; C8952; G0461; G0462; J0131; J1100; J1170; J1885; J1956; J2270; J2405; J2543; J2704; J2710; J3010; J7030; Q9967